=== PATIENT | male | born 1995 | race Caucasian/White ===

== ENCOUNTER 2024-10-18 18:48 | Emergency (ER) | payer MEDICAID ==
[~2024-10-18] VITALS: Ht 188 cm; Wt 109.1 kg
[2024-10-18 18:51] VITALS: TEMP 97.9
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
[2024-10-18] MEDS ORDERED: ketorolac trometh 15mg/ml vial 15 MG/ML ML IV ONE (19:25)
[2024-10-18] MEDS ORDERED: iohexol 300mg/ml 100ml inj. ONE (19:27)
[2024-10-18 19:37] LABS: BASOPHILS # (AUTO) 0.1 X10'3 (0-0.2); BASOPHILS % (AUTO) 0.7 % (0-1); EOSINOPHILS # (AUTO) 0.2 X10'3 (0-0.9); EOSINOPHILS % (AUTO) 2.1 % (0-6); HEMATOCRIT 44.3 % (42.0-52.0); HEMOGLOBIN 15.4 g/dl (14.0-17.9); LYMPHOCYTES # (AUTO) 2.2 X10'3 (1.1-4.8); LYMPHOCYTES % (AUTO) 27.5 % (21-51); MEAN CORPUSCULAR HEMOGLOBIN 29.6 PG (27.0-31.0); MEAN CORPUSCULAR HGB CONC 34.7 g/dL (33.0-36.5); MEAN CORPUSCULAR VOLUME 85.5 FL (78-98); MONOCYTES # (AUTO) 0.7 X10'3 (0-0.9); MONOCYTES % (AUTO) 8.5 % (2-12); NEUTROPHILS # (AUTO) 4.9 X10'3 (1.8-7.7); NEUTROPHILS % (AUTO) 61.2 % (42-75); PLATELET COUNT 235 X10'3 (140-440); RED BLOOD COUNT 5.19 X10'6 (4.70-6.10); RED CELL DISTRIBUTION WIDTH 13.4 % (11.5-14.5)
[2024-10-18] MEDS: ketorolac trometh 30MG/ML vial 30 MG/ML VIAL IV ONE (19:38)
[2024-10-18 19:56] LABS: ALBUMIN 4.1 G/DL (3.4-5.0); ANION GAP 7 (8-16); BLOOD UREA NITROGEN 14 MG/DL (7-18); BUN/CREATININE RATIO 12.5 (10.0-20.0); CALCIUM 9.1 MG/DL (8.5-10.1); CHLORIDE 108 MMOL/L (99-107); CREATINE KINASE 475 U/L (39-308); CREATININE 1.12 MG/DL (0.60-1.10); GLUCOSE 96 MG/DL (70-104); POTASSIUM 3.8 MMOL/L (3.5-5.1); SODIUM 141 MMOL/L (135-145); TOTAL CARBON DIOXIDE 25.8 MMOL/L (24-32); eCRCL 111 ML/MIN; eGFR 76 ML/MIN
--- NOTE | 2024-10-18 20:33 | RADIOLOGY REPORT ---
Exam: CT CT CHEST ABDOMEN PELVIS W/ IV CONTRAST History: right sided flank, chest, rib and right shoulder pain Comparison Study: None available at time of dictation. Technique: Multidetector CT of the chest, abdomen and pelvis was performed from lower neck to pubic s ymphysis. Intravenous contrast was administered during this examination. Axial, coronal and sagittal multiplanar reformats were performed by the technologist on a separate workstation. Radiation Dose Information: CT Dose: CTDI volume is 34.09 mGy. Dose-length product is 2554.56 mGy*cm Findings: Lower neck: No masses Lungs: Pulmonary nodules or masses Heart/Vascular Structures: Normal Lymph Nodes: No adenopathy Pleura: No pleural thickening Liver: The liver is normal in size. No focal lesions. Normal hepatic vascular enhancement. Gallbladder and Biliary Tree: Unremarkable Spleen: Unremarkable Pancreas: The pancreas is normal in appearance without focal lesions or abnormal enhancement. Adrenal Glands: Unremarkable Kidneys: Kidneys demonstrate normal symmetric enhancement without focal lesions, calculi or hydroneph rosis. Bladder: Unremarkable Bowel: The stomach is grossly normal in appearance. Small bowel and colon are normal in caliber and d istribution. The appendix is not visualized; however, no secondary findings of acute appendicitis id entified. Ascites: Absent Lymphadenopathy: No mesenteric, retroperitoneal or periportal lymphadenopathy. Abdominal Wall and Mesentery: Unremarkable. Vasculature: The visualized abdominal aorta is normal in size and caliber. Abdominal and pelvic vess els demonstrate normal enhancement. Pelvic Organs: Unremarkable Musculoskeletal: No aggressive focal bony lesions, acute fractures or dislocation. IMPRESSION: 1. No pulmonary masses or nodules 2. There is no nephrolithiasis or hydronephrosis. 3. No displaced rib fractures. 4. No pleural effusions no pneumothorax. 5. If persistent symptoms of pain in the right shoulder are present recommend MRI. All CT scans at this medical facility are performed using dose modulation techniques as appropriate t o a performed exam including the following: Automated exposure control was utilized; adjustment of th e MA and/or KV according to patient size; and use of iterative reconstruction technique.
--- NOTE | 2024-10-18 20:48 | RADIOLOGY REPORT ---
Clinical History SOB Comparison None Technique: single view chest Without Contrast GRISEL BAEZA, [id number] FINDINGS: Trachea is midline, heart size normal, cardiomediastinal silhouette unremarkable. There is no pneumonia or pulmonary basilar congestion, no pneumothorax, no evidence of pleural or per icardial effusion. Osseous structures are unremarkable on this single image. IMPRESSION: 1. No evidence of acute cardiopulmonary disease. This report was electronically signed by Vini Vivas MD on 10/18/2024 8:44:35 PM.
--- NOTE | 2024-10-18 21:26 | RADIOLOGY REPORT ---
Clinical History Shoulder Pain Comparison None Technique: right shoulder 2 views Without Contrast GRISEL BAEZA, [id number] Findings: Bones: No displaced fracture. Soft tissues: No swelling. No foreign body Joints: Visualized joints are within normal limits. Impression: 1. No acute fracture or dislocation. This report was electronically signed by Anant Gomez MD on 10/18/2024 9:22:35 PM.
[2024-10-18] MEDS ORDERED: CYCL-1 PO (21:45)
[2024-10-18] MEDS: cyclobenzaprine 10mg tablet PO ONE (21:54)
[2024-10-18 21:55] VITALS: BP 132/68; PULSE 82; RESP 18; O2SAT 99
== END 2024-10-18 21:55 | disposition home or self-care (01) ==
LOC: ER 18:49
DX: S80.11XA Contusion of right lower leg, initial encounter (principal); S50.11XA Contusion of right forearm, initial encounter; M25.511 Pain in right shoulder; R06.02 Shortness of breath; V89.2XXA Person injured in unspecified motor-vehicle accident, traffic, initial encounter; Y93.89 Activity, other specified; Y92.410 Unspecified street and highway as the place of occurrence of the external cause; Y99.8 Other external cause status
CPT/HCPCS: 36415; 71045; 71260; 73030; 74177; 80048; 82550; 83874; 85025; 96374; 99285; J1885; Q9967